=== PATIENT | female | born 1995 | race Caucasian/White ===

== ENCOUNTER 2018-09-05 15:54 | Emergency (ER) | payer SELFPAY ==
--- NOTE | 2018-09-05 18:40 | C.PDOC ---
History Of Present Illness 22 year old female presents to the ED complaining of right ear pain ongoing with associated decreased hearing for the last 3 days. Feels like something is covering her ear. Reports she was unable to sleep last night due to the pain. Notes history of tympanoplasty in 2012 in [place]. She developed a fungal infection in the right ear status post surgery and was given unknown drops in [place]. Denies any fever, chills, or headache. Time Seen by Provider: 09/05/18 16:13 Chief Complaint (Nursing): ENT Problem History Per: Patient History/Exam Limitations: None Onset/Duration Of Symptoms: Days (3) Current Symptoms Are (Timing): Still Present Quality (Ear): Pain W/Touch, Discharge Past Medical History Reviewed: Historical Data, Nursing Documentation, Vital Signs Vital Signs: Last Vital Signs Temp 97.7 F 09/05/18 15:59 Pulse 80 09/05/18 15:59 Resp 20 09/05/18 15:59 BP 114/80 09/05/18 15:59 Pulse Ox 98 09/05/18 15:59 - Medical History PMH: No Chronic Diseases Other Surgeries: Tympanoplasty (2012) Family History: States: No Known Family Hx - Social History Hx Alcohol Use: No Hx Substance Use: No - Immunization History Hx Tetanus Toxoid Vaccination: No Hx Influenza Vaccination: Yes (05/2018) Hx Pneumococcal Vaccination: No Review Of Systems Except As Marked, All Systems Reviewed And Found Negative. Constitutional: Negative for: Fever, Chills ENT: Positive for: Ear Pain (right) Neurological: Negative for: Headache Physical Exam - Physical Exam Appears: Non-toxic, No Acute Distress Skin: Warm, Dry, No Rash Head: Normacephalic Eye(s): bilateral: Normal Inspection, PERRL, EOMI Ear(s): Left: Normal, Right: Other (white exudate cottage cheese-like visualized in right ear canal, partial TM visualized, no perforations or erythema. mild tenderness to mastoid area ) Nose: Normal Oral Mucosa: Moist Tongue: Normal Appearing Lips: Normal Appearing Teeth: Normal Dentition Gingiva: Normal Appearing Throat: Normal, No Erythema, No Exudate Neck: Supple Chest: Symmetrical Cardiovascular: Rhythm Regular Respiratory: Normal Breath Sounds, No Rales, No Rhonchi, No Wheezing Neurological/Psych: Oriented x3, Normal Speech Gait: Steady ED Course And Treatment O2 Sat by Pulse Oximetry: 98 (RA) Pulse Ox Interpretation: Normal Progress Note: CT of facial bones ordered. Spoke with Dr. Walsh, ENT commissions specialist, who requested CT scan of right mastoid. Stated if CT scan is negative, patient will be discharged with antibiotics and Lotrimin solution. If positive, Dr. Walsh will be called to discuss further plan. Disposition - Disposition Disposition Time: 19:00 Condition: STABLE Forms: [facility] (Bulgarian) - Clinical Impression Clinical Impression: Otitis externa - PA / FRE[employer]DUCTOR / Resident Statement MD/DO has reviewed & agrees with the documentation as recorded. - Scribe Statement The provider has reviewed the documentation as recorded by the Scribe Jennifer Mcclure All medical record entries made by the Scribe were at my direction and personally dictated by me. I have reviewed the chart and agree that the record accurately reflects my personal performance of the history, physical exam, medical decision making, and the department course for this patient. I have also personally directed, reviewed, and agree with the discharge instructions and disposition. Physician Patient Turnover Patient Signed Over To: Ari Alfonso Handoff Comments: pending CT result and dispo
[2018-09-05 19:50] VITALS: BP 106/71; PULSE 76; RESP 18; TEMP 97.9; O2SAT 100
--- NOTE | 2018-09-06 13:40 | CT ---
Date of service: 09/05/2018 PROCEDURE: CT OF THE TEMPORAL BONES WITHOUT CONTRAST HISTORY: right otitis externa, decreased hearing COMPARISON: None available. TECHNIQUE: High resolution axial images of the temporal bones were obtained. Coronal and sagittal reformats were generated. Radiation dose: Total exam DLP = 635.99 mGy-cm. This CT exam was performed using one or more of the following dose reduction techniques: Automated exposure control, adjustment of the mA and/or kV according to patient size, and/or use of iterative reconstruction technique. FINDINGS: RIGHT TEMPORAL BONE: RIGHT MIDDLE EAR: There is abnormal soft tissue in the middle ear cavity. The ossicles are diminutive and not well visualized. RIGHT INNER EAR: Cochlea: Normal. Semicircular canals: Normal. RIGHT MASTOID AIR CELLS: Status post partial mastoidectomy. There is abnormal soft tissue in the visualized mastoid air cells without destruction of inter mastoid septations. RIGHT INTERNAL AUDITORY CANAL: Normal. RIGHT EXTERNAL AUDITORY CANAL: The tympanic membrane is not visualized. No abnormal soft tissue in the external auditory canal. RIGHT VESTIBULAR AND COCHLEAR AQUEDUCT: Normal. OTHER FINDINGS: None. LEFT TEMPORAL BONE: LEFT MIDDLE EAR: Abnormal soft tissue in the epitympanum and medial to the ossicles. No evidence for erosion of the ossicular chain. The scutum is normal and there is no abnormal soft tissue in the Prussak's space. LEFT INNER EAR: Cochlea: Normal. Semicircular canals: Normal. LEFT MASTOID AIR CELLS: Normal. LEFT INTERNAL AUDITORY CANAL: Normal. LEFT EXTERNAL AUDITORY CANAL: Normal. LEFT VESTIBULAR AND COCHLEAR AQUEDUCTS: Normal. OTHER FINDINGS: None. IMPRESSION: 1. Status post partial right mastoidectomy and presumable surgical absence of most of the ossicular chain, findings are most compatible with acute and/or chronic right mastoiditis and otitis media. Cholesteatoma cannot be entirely excluded. Clinical follow-up is advised. 2. Soft tissue in the left middle ear cavity without definite evidence for bone erosion concerning for acute and/or chronic otitis media. A preliminary report was provided by [facility].
== END 2018-09-05 20:10 | disposition home or self-care (01) ==
LOC: C.ER 15:54
DX: H60.91 Unspecified otitis externa, right ear (principal)